=== PATIENT | male | born 1990 | race Caucasian/White ===

== ENCOUNTER 2024-11-23 14:21 | Emergency (ER) | payer BC, MEDICAID, SELFPAY ==
[2024-11-23 14:31] VITALS: BP 120/70; PULSE 82; RESP 16; TEMP 36.8; O2SAT 97; BMI 29.0
--- NOTE | 2024-11-23 14:58 | CTR_ITS ---
PROCEDURE INFORMATION: Exam: CT Abdomen And Pelvis With Contrast Exam date and time: 11/23/2024 3:08 PM Age: 34 years old Clinical indication: Abdominal pain; Generalized; Prior surgery; Surgery date: 6+ months; Surgery type: Partial hysterectomy x7 yrs ago; Additional info: Rlq pain TECHNIQUE: Imaging protocol: Computed tomography of the abdomen and pelvis with contrast. Radiation optimization: All CT scans at this facility use at least one of these dose optimization techniques: automated exposure control; mA and/or kV adjustment per patient size (includes targeted exams where dose is matched to clinical indication); or iterative reconstruction. Contrast material: OMNIPAQUE 350; Contrast volume: 100 ml; Contrast route: INTRAVENOUS (IV); COMPARISON: No relevant prior studies available. RADIATION DOSE METRICS: Total DLP (mGy-cm): 624.72 FINDINGS: Liver: Hepatic steatosis. No significant hepatic lesions. Gallbladder and biliary ducts: Normal. No calcified stones. No ductal dilation. Pancreas: Normal. No ductal dilation. Spleen: Normal. No splenomegaly. Adrenal glands: Normal. No mass. Kidneys and ureters: Normal. No hydronephrosis. Stomach and bowel: Unremarkable. No obstruction. No mucosal thickening. Appendix: No evidence of appendicitis. Intraperitoneal space: Unremarkable. No free air. No significant fluid collection. Vasculature: Unremarkable. No abdominal aortic aneurysm. Lymph nodes: Unremarkable. No enlarged lymph nodes. Urinary bladder: Unremarkable as visualized. Reproductive: Surgically absent uterus. No adnexal masses. 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 Soft tissues: Unremarkable. CT/CT abdomen pelvis w con* [id number] IMPRESSION: 1. No acute findings in the pelvis. 2. 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
--- NOTE | 2024-11-23 15:08 | ED_ITS ---
HPI - Abdominal Pain 2 General: Chief Complaint: Abdominal Pain Stated Complaint: abd pain Time Seen by Provider: 11/23/24 14:23 History of Present Illness: Patient is a 34-year-old female presenting with right-sided abdominal pain that started a couple of days ago. The pain is intermittent and located in both the right upper and lower quadrants. This morning, symptoms significantly worsened with severe diarrhea lasting approximately three and a half hours, characterized by yellow-green watery stools. Patient reports associated dizziness and severe nausea but denies vomiting. She notes the pain is worse in the lower abdomen. Patient reports normal urination yesterday but notes significant discomfort with breathing. Related Data Home Medications ?Medication ?Instructions ?Recorded ?Confirmed No Known Home Medications 11/23/2403/12 Allergies Allergy/AdvReac Type Severity Reaction Status Date / Time Penicillins Allergy Unknown Verified 11/23/24 14:39 Physical Exam 2 Const: COMMON NORMALS: no acute distress, average body habitus, alert and well nourished GENERAL APPEARANCE: cooperative ORIENTATION/CONSCIOUSNESS: Yes awake HENMT: COMMON NORMALS: normocephalic and atraumatic HEAD & SCALP: n ormocephalic and atraumatic Eye: COMMON NORMALS: conjunctivae normal CONJUNCTIVA: Yes conjunctivae normal Neck/C-Spine: GENERAL: Yes normal visual inspection Resp: COMMON NORMALS: normal respiratory effort, No retractions and No use of accessory muscles Cardio: COMMON NORMALS: regular rhythm and Peripheral pulses 2+ throughout RHYTHM: regular rhythm PERIPHERAL PULSES: Peripheral pulses 2+ throughout GI: COMMON NORMALS: Soft to palpation PALPATION: Yes Soft to palpation O THER: ttp of the RUQ and RLQ, mild guarding. Extremity: COMMON NORMALS: full ROM and no pedal edema Neuro: COMMON NORMALS: no focal motor deficits SENSORIUM/ORIENTATION: Yes alert Skin: COMMON NORMALS: no rashes or lesions noted GENERAL SKIN EXAM: no rashes or lesions noted Course 2 Vital Signs: Vital signs: Vital Signs Temperature 98.2 F 11/23/24 14:31 Pulse Rate 80 11/23/24 15:34 Respiratory Rate 16 11/23/24 14:31 Blood Pressure 133/82 11/23/24 15:34 Pulse Oximetry 99 11/23/24 15:34 Oxygen Delivery Me thod Room Air 11/23/24 15:34 MDM - Abdominal Pain Medical Decision Making Review of Systems: Constitutional: Positive for dizziness Gastrointestinal: Positive for diarrhea, nausea, and abdominal pain. Negative for vomiting Genitourinary: Normal urination reported yesterday. Negative for abnormal vaginal discharge All other systems reviewed and negative Past Surgical History: Partial hysterectomy Rectus diastasis repair Social History: Occasional marijuana use Denies alcohol use Denies regular NSAID use History of twin (vaginal delivery) Physical Exam: General: Alert and oriented Abdomen: - Focal tenderness in right upper and lower quadrants - Mild guarding present - Pain worse in lower quadrant on examination Lab Results: Basic labs ordered, results pending Imaging and Other Relevant Results: CT scan of abdomen/pelvis ordered, results pending Medical Decision Making: Summary Statement: 34-year-old female with acute onset of right-sided abdominal pain and severe diarrhea, presenting with concerning physical exam findings requiring further evaluation. Problem List: 1. Right-sided abdominal pain 2. Acute diarrhea 3. Nausea 4. Dizziness Differential Diagnosis: 1. Acute appendicitis 2. Cholecystitis 3. Gastroenteritis 4. Colitis 5. Mesenteric adenitis 6. Partial bowel obstruction ED Course: Patient received Zofran for nausea and carefully titrated fentanyl for pain management due to sensitivity to pain medications. Basic labs and CT abdomen/pelvis ordered for further evaluation. Assessment and Plan: 1. Right-sided Abdominal Pain: - CT abdomen/pelvis to evaluate for acute intra-abdominal pathology - Basic laboratory studies to assess for infection and inflammation - Pain management with careful titration of opioids given patient sensitivity 2. Acute Diarrhea with Nausea: - Continued antiemetic therapy with Zofran - Monitor fluid status and provide IV hydration if needed - Await CT results to determine specific etiology and guide further management Patient CT scan of the abdomen pelvis does not show any acute pathology. CBC and CMP are overall unremarkable. She has a mild leukocytosis of 12,000. Urinalysis was ultimately obtained however she is insistent upon leaving prior to having the results of this. She understands the limitations of getting these results given that this is an ER and we do not have providers that we will be able to continue to follow-up on these results. We will make every effort to follow-up on these however it is quite busy and I have encouraged her to follow- up with her PCP tomorrow since she is insisting upon leaving prior to receiving these results and treatment for what may be revealed. Lab Data I reviewed the patient's lab results. 11/23/24 15:35 11/23/24 15:35 Labs/Radiology: Radiology Impressions Abdomen/Pelvis CT 11/23/24 14:58 IMPRESSION: 1. No acute findings in the pelvis. 2. 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 Laboratory Results WBC 12.34 10^3/uL (3.29-11.43) H 11/23/24 15:35 RBC 4.90 10^6/uL (3.85-5.65) 11/23/24 15:35 Hgb 14.00 g/dL (11.27-16.99) 11/23/24 15:35 Hct 42.1 % (37-53) 11/23/24 15:35 MCV 85.9 fl (82-101) 11/23/24 15:35 MCH 28.6 pg (27-33) 11/23/24 15:35 MCHC 33.3 g/dL (30-55) 11/23/24 15:35 RDW 13.4 % (12.1-15.1) 11/23/24 15:35 Plt Count 201 10^3/cmm (157-399) 11/23/24 15:35 MPV 11.6 fL (7.4-10.4) H 11/23/24 15:35 Neut % (Auto) 75.2 % 11/23/24 15:35 Lymph % (Auto) 16.0 % 11/23/24 15:35 [place] % (Auto) 4.5 % 11/23/24 15:35 Eos % (Auto) 3.1 % 11/23/24 15:35 Baso % (Auto) 0.8 % 11/23/24 15:35 Neut # (Auto) 9.27 10^3/uL (1.8-7.7) H 11/23/24 15:35 Lymph # (Auto) 2.0 10^3/uL (0.8-4.8) 11/23/24 15:35 [place] # (Auto) 0.6 10^3/uL (0.2-0.9) 11/23/24 15:35 Eos # (Auto) 0.4 10^3/uL (0.0-0.8) 11/23/24 15:35 Baso # (Auto) 0.1 10^3/uL (0.0-0.1) 11/23/24 15:35 Nucleated RBC % (auto) 0 % 11/23/24 15:35 Nucleated RBCs # 0.0 /100WBC 11/23/24 15:35 Sodium 134 mmol/L (136-145) L 11/23/24 15:35 Potassium 3.6 mmol/L (3.5-5.1) 11/23/24 15:35 Chloride 100 mmol/L (98-107) 11/23/24 15:35 Carbon Dioxide 20 mmol/L (22-29) L 11/23/24 15:35 Anion Gap 17.6 (5-19) 11/23/24 15:35 BUN 10 mg/dL (6-20) 11/23/24 15:35 Creatinine 0.5 mg/dL (0.7-1.2) L 11/23/24 15:35 GFR Calculation 189.2 mL/min (90-130) H 11/23/24 15:35 Glucose 89 mg/dL (65-115) 11/23/24 15:35 Calculated Osmolality 277 mOsm/kg (285-295) L 11/23/24 15:35 Lactic Acid 1.0 mmol/L (0.5-2.2) 11/23/24 15:35 Calcium 8.8 mg/dL (8.5-10.5) 11/23/24 15:35 Total Bilirubin 0.3 mg/dL (0.15-1.2) 11/23/24 15:35 AST 16 U/L (0-40) 11/23/24 15:35 ALT 20 U/L (0-41) 11/23/24 15:35 Alkaline Phosphatase 97 U/L (40-130) 11/23/24 15:35 Total Protein 7.6 g/dL (6.6-8.7) 11/23/24 15:35 Albumin 4.2 g/dL (3.5-5.2) 11/23/24 15:35 Globulin 3.4 g/dL (1.3-4.6) 11/23/24 15:35 Lipase 30 U/L (13-60) 11/23/24 15:35 Amorphous Sediment Not Reportable 11/23/24 17:32 All radiology interpretation(s) finalized by discharge Discharge Plan Discharge Patient Disposition: Home Clinical Impression: Abdominal pain Condition: Stable Prescriptions: No Action No Known Home Medications Discharge Orders: Discharge ED (Routine); Ordered 11/23/24 Ordered By: Jericho Evangelista Patient Instructions: Abdominal Pain (ED), Opioid Safety, Pain Management Activity Restrictions/Additional Instructions: Follow-up with your primary care provider soon as possible for the results of your urinalysis that were obtained today. Return to the ER for any concerns or worsening symptoms. Print Language: [place]atian Coding Level of Care Code ED Operations Manager Assistant for Gasper Miller
[2024-11-23] MEDS: iohexol 350 mg/mL 500 mL Btl (per mL) IV (15:11)
[2024-11-23 15:34] VITALS: BP 133/82; PULSE 80; O2SAT 99
[2024-11-23] MEDS: ondansetron 2 mg/ML SDV 2 mL 4 MG IVP (15:37)
[2024-11-23] MEDS: morphine 4 mg/mL SDV 1 mL 2 MG IVP (15:37)
[2024-11-23] MEDS: sodium chloride 0.9% 1,000 ML 999 ML IV (15:37)
[2024-11-23 15:55] LABS: Basophils # 0.1 10^3/uL (0.0-0.1); Basophils % 0.8 %; Eosinophils # 0.4 10^3/uL (0.0-0.8); Eosinophils % 3.1 %; Hematocrit 42.1 % (37-53); Mean Corpuscular HGB Conc 33.3 g/dL (30-55); Mean Corpuscular Hemoglobin 28.6 pg (27-33); Mean Corpuscular Volume 85.9 fl (82-101); Mean Platelet Volume 11.6 fL (7.4-10.4); Monocytes # 0.6 10^3/uL (0.2-0.9); Monocytes % 4.5 %; Neutrophils # 9.27 10^3/uL (1.8-7.7); Neutrophils % 75.2 %; Nucleated Red Blood Cells % 0 %; Platelet Count 201 10^3/cmm (157-399); Red Cell Distribution Width 13.4 % (12.1-15.1); White Blood Count 12.34 10^3/uL (3.29-11.43)
[2024-11-23 16:14] LABS: Alanine Aminotransferase 20 U/L (0-41); Albumin Level 4.2 g/dL (3.5-5.2); Alkaline Phosphatase 97 U/L (40-130); Anion Gap 17.6 (5-19); Aspartate Amino Transferase 16 U/L (0-40); Blood Urea Nitrogen 10 mg/dL (6-20); Calcium 8.8 mg/dL (8.5-10.5); Carbon Dioxide 20 mmol/L (22-29); Chloride 100 mmol/L (98-107); Creatinine Clr Calc Pharmacy 206.9048; Globulin 3.4 g/dL (1.3-4.6); Glomerular Filtration Rate 189.2 mL/min (90-130); Glucose 89 mg/dL (65-115); Lipase 30 U/L (13-60); Osmolality Calculated 277 mOsm/kg (285-295); Potassium 3.6 mmol/L (3.5-5.1); Sodium 134 mmol/L (136-145); Total Bilirubin 0.3 mg/dL (0.15-1.2); Total Protein 7.6 g/dL (6.6-8.7)
--- NOTE | 2024-11-23 17:50 | PC.NURSE ---
patient refused vitals and pulled vital machine cords off of herself. patient pulled her IV out purposely and stated that she wanted to be d/c and called with results. provider notified and agreed.
[2024-11-23 17:53] LABS: Bilirubin Urine Negative (Negative); Blood Urine Negative (Negative); Glucose Urine UA Negative (Normal); Ketones Urine 1+ (Negative); Leukocyte Esterase Urine Negative (Negative); Nitrate Urine Negative (Negative); Protein Urine Negative (Negative); Urine Appearance Clear (CLEAR); Urine Color Yellow (Yellow); Urobilinogen Urine 0.2 mg/dL (Negative); pH Urine 5.5 (5-7)
[2024-11-23 17:58] LABS: Add Urine Microscopic? YES; Bacteria Urine None Seen /hpf; Hyaline Casts Urine 0-4 /lpf; RBC Urine 0-2 /hpf (0-2); Squamous Epithelial Cell Urine 0-5 /hpf (0-5); WBC Urine 0-5 /hpf (0-5)
== END 2024-11-23 17:53 | disposition home or self-care (01) ==
PROVIDERS: Emergency Provider Student in an Organized Health Care Education/Training Program
DX: R10.9 Unspecified abdominal pain (principal)
CPT/HCPCS: 36415; 74177; 80053; 81001; 83605; 83690; 85025; 87040; 96374; 96375; 99285; J2270; J2405; J7030